=== PATIENT | male | born 1950 | race Caucasian/White ===

== ENCOUNTER 2020-04-10 00:55 | Emergency (ER) | payer MEDICARE ==
[~2020-04-10] VITALS: Ht 200.7 cm; Wt 93.0 kg
[~2020-04-10 00:55] MED LIST: AMIT10TA6 PO; CLON0.1T PO; MIRT45TA PO; SERT20OR PO
[2020-04-10 01:38] LABS: BASOPHILS % (AUTO) 0.8 % (0.0-2.0); EOSINOPHILS % (AUTO) 1.5 % (1.0-6.0); HEMATOCRIT 42.6 % (41-53); HEMOGLOBIN 14.2 g/dL (13.5-17.5); LYMPHOCYTES # (AUTO) 1.6 K/uL (1.0-4.8); LYMPHOCYTES % (AUTO) 30.1 % (22.0-44.0); MEAN CORPUSCULAR HEMOGLOBIN 29.9 pg (26.0-34.0); MEAN CORPUSCULAR HGB CONC 33.4 G/dL (31.0-37.0); MEAN CORPUSCULAR VOLUME 90 fL (80-100); MONOCYTES # (AUTO) 0.5 K/uL (0.1-1.0); MONOCYTES % (AUTO) 9.9 % (2.0-9.0); NEUTROPHILS % (AUTO) 57.7 % (40.0-70.0); PLATELET COUNT (AUTO) 165 K/uL (150-450); RED BLOOD CELL COUNT(AUTO) 4.76 MIL/uL (4.50-5.90); RED CELL DISTRIBUTION WIDTH 14.3 % (11.5-14.5)
[2020-04-10 01:48] LABS: ANION GAP 9 mmol/L (8-16); CARBON DIOXIDE 24 mmol/L (22-29); CHLORIDE 108 mmol/L (98-107); CREATININE 0.89 mg/dL (0.60-1.30); GLOMERULAR FILTR. RATE CALC > 60 mL/min (>60); GLUCOSE,RANDOM 99 mg/dL (70-110); POTASSIUM 3.3 mmol/L (3.5-5.1); SODIUM SERUM 141 mmol/L (136-145); UREA NITROGEN, BLOOD 24 mg/dL (7-18)
[2020-04-10 01:49] LABS: SALICYLATE 2.8 mg/dL (2.8-20.0)
[2020-04-10 01:55] LABS: B-TYPE NATRIURETIC PEPTIDE 7 pg/mL (0-100)
[2020-04-10] MEDS ORDERED: POTASSIUM CHLORIDE 20 MEQ ER TABLET PO ONE (02:00)
[2020-04-10 02:12] LABS: ACETAMINOPHEN 3 mcg/mL (10-30); ALANINE AMINOTRANSFERASE 51 U/L (12-78); ALBUMIN 3.7 g/dL (3.4-5.0); ALKALINE PHOSPHATASE 80 U/L (46-116); ASPARTATE AMINOTRANSFERASE 29 U/L (15-37); BILIRUBIN,TOTAL 0.5 mg/dL (0.1-1.0); CREATINE KINASE, TOTAL ONLY 93 U/L (39-308)
[2020-04-10 02:15] VITALS: BP 149/90
== END 2020-04-10 02:30 | disposition home or self-care (01) ==
LOC: EMS 00:55
DX: R45.851 Suicidal ideations (principal); F32.9 Major depressive disorder, single episode, unspecified; F12.90 Cannabis use, unspecified, uncomplicated; F17.210 Nicotine dependence, cigarettes, uncomplicated; Z79.899 Other long term (current) drug therapy
CPT/HCPCS: 36415; 80053; 82550; 83735; 83880; 84484; 85025; 93005; 99284; G0480; G0481

== ENCOUNTER 2022-03-07 12:46 | Emergency (ER) | payer MEDICARE, OTHER ==
[~2022-03-07] VITALS: Ht 193 cm; Wt 110.0 kg
[~2022-03-07 12:46] MED LIST changes: +ACET-784 PO; -AMIT10TA6 PO; +CHLO240L TP; -CLON0.1T PO; +DOCU-385 PO; +ENOX40SY14 SQ; +HYDR-4723 PO; +MAGN-169 PO; -MIRT45TA PO; +MULT-248 PO; +MUPI15CR12 TP; +PANT-31 PO; -SERT20OR PO; +TAMS-13 PO
[2022-03-07] MEDS ORDERED: ACETAMINOPHEN 500 MG TABLET PO ONE (13:15)
[2022-03-07 14:09] LABS: BASOPHILS % (AUTO) 0.6 % (0.0-2.0); EOSINOPHILS % (AUTO) 1.2 % (1.0-6.0); HEMATOCRIT 43.1 % (41-53); HEMOGLOBIN 14.3 g/dL (13.5-17.5); LYMPHOCYTES # (AUTO) 1.4 K/uL (1.0-4.8); LYMPHOCYTES % (AUTO) 23.8 % (22.0-44.0); MEAN CORPUSCULAR HEMOGLOBIN 29.8 pg (26.0-34.0); MEAN CORPUSCULAR HGB CONC 33.1 G/dL (31.0-37.0); MEAN CORPUSCULAR VOLUME 90 fL (80-100); MONOCYTES # (AUTO) 0.6 K/uL (0.1-1.0); MONOCYTES % (AUTO) 9.9 % (2.0-9.0); NEUTROPHILS # (AUTO) 3.9 K/uL (1.8-7.7); NEUTROPHILS % (AUTO) 64.5 % (40.0-70.0); PLATELET COUNT (AUTO) 139 K/uL (150-450); RED BLOOD CELL COUNT(AUTO) 4.79 MIL/uL (4.50-5.90); RED CELL DISTRIBUTION WIDTH 14.7 % (11.5-14.5)
[2022-03-07 14:19] LABS: ANION GAP 6 mmol/L (8-16); CALCIUM, TOTAL 9.3 mg/dL (8.8-10.5); CARBON DIOXIDE 30 mmol/L (22-29); CHLORIDE 102 mmol/L (98-107); CREATININE 0.88 mg/dL (0.60-1.30); GLUCOSE,RANDOM 110 mg/dL (70-110); POTASSIUM 3.5 mmol/L (3.5-5.1); SODIUM SERUM 138 mmol/L (136-145); UREA NITROGEN, BLOOD 18 mg/dL (7-18)
[2022-03-07 14:25] LABS: ALANINE AMINOTRANSFERASE 75 U/L (12-78); ALBUMIN 3.7 g/dL (3.4-5.0); ALKALINE PHOSPHATASE 82 U/L (46-116); ASPARTATE AMINOTRANSFERASE 40 U/L (15-37); B-TYPE NATRIURETIC PEPTIDE 9 pg/mL (0-100); BILIRUBIN,TOTAL 0.6 mg/dL (0.1-1.0); GLOMERULAR FILTR. RATE CALC > 60 mL/min (>60); TOTAL PROTEIN, SERUM 7.2 g/dL (6.4-8.2)
[2022-03-07 14:27] LABS: PROTHROMBIN TIME 11.1 SEC (9.4-11.6)
[2022-03-07 15:09] LABS: APPEARANCE,URINE CLEAR (CLEAR); BILIRUBIN,URINE NEGATIVE (NEGATIVE); GLUCOSE, URINE (UA) NEGATIVE (NEGATIVE); KETONES,URINE NEGATIVE (NEGATIVE); LEUKOCYTE ESTERASE ,URINE SMALL (NEGATIVE); OCCULT BLOOD,URINE NEGATIVE (NEGATIVE); PH,URINE 5.5 (5.0-8.0); PROTEIN,URINE NEGATIVE (NEGATIVE); SPECIFIC GRAVITIY, URINE 1.027 (1.003-1.030); UROBILINOGEN,URINE <=1.0 mg/dL (<=1.0)
[2022-03-07 15:24] LABS: NITRATE,URINE POSITIVE (NEGATIVE)
[2022-03-07 15:25] LABS: BACTERIA,URINE Many /HPF (None Seen); RBC,URINE None Seen /HPF (0-2)
[2022-03-07] MEDS ORDERED: CEPHALEXIN MONOHYDRATE 500 MG CAPSULE PO ONE (15:45)
[2022-03-07 17:34] VITALS: BP 171/100
== END 2022-03-07 23:04 | disposition home or self-care (01) ==
LOC: EMS 12:50
DX: M25.551 Pain in right hip (principal); N39.0 Urinary tract infection, site not specified; F03.90 Unspecified dementia, unspecified severity, without behavioral disturbance, psychotic disturbance, mood disturbance, and anxiety; I10 Essential (primary) hypertension; Z90.49 Acquired absence of other specified parts of digestive tract; Z98.890 Other specified postprocedural states
CPT/HCPCS: 70450; 71045; 73502; 80053; 81001; 83880; 84484; 85025; 85610; 85730; 87086; 87186; 93005; 99285; 36415-L1; 36415-TC

== ENCOUNTER 2024-01-13 12:44 | Emergency (ER) | payer MEDICARE, OTHER ==
[~2024-01-13] VITALS: Ht 190.5 cm; Wt 110.3 kg
[~2024-01-13 12:44] MED LIST changes: +HYDR-4062 PO; -HYDR-4723 PO; -TAMS-13 PO; +TAMS0.4C94 PO
[2024-01-13 13:15] VITALS: BP 131/86; PULSE 96; RESP 20; TEMP 98.3
[2024-01-13 14:12] LABS: HEMOGLOBIN 12.3 g/dL (13.5-17.5); RED BLOOD CELL COUNT(AUTO) 4.46 MIL/uL (4.50-5.90)
[2024-01-13 14:13] LABS: BASOPHILS % (AUTO) 0.6 % (0.0-2.0); EOSINOPHILS % (AUTO) 1.8 % (1.0-6.0); LYMPHOCYTES # (AUTO) 1.8 K/uL (1.0-4.8); LYMPHOCYTES % (AUTO) 25.6 % (22.0-44.0); MEAN CORPUSCULAR HEMOGLOBIN 27.6 pg (26.0-34.0); MEAN CORPUSCULAR HGB CONC 31.6 G/dL (31.0-37.0); MEAN CORPUSCULAR VOLUME 87 fL (80-100); MONOCYTES # (AUTO) 0.6 K/uL (0.1-1.0); MONOCYTES % (AUTO) 8.8 % (2.0-9.0); NEUTROPHILS # (AUTO) 4.4 K/uL (1.8-7.7); NEUTROPHILS % (AUTO) 63.2 % (40.0-70.0); PLATELET COUNT (AUTO) 199 K/uL (150-450); RED CELL DISTRIBUTION WIDTH 15.6 % (11.5-14.5)
[2024-01-13 14:23] LABS: ANION GAP 13 mmol/L (8-16); CALCIUM, TOTAL 9.3 mg/dL (8.8-10.5); CARBON DIOXIDE 22 mmol/L (22-29); CHLORIDE 106 mmol/L (98-107); CREATININE 1.15 mg/dL (0.60-1.30); GLOMERULAR FILTR. RATE CALC > 60 mL/min (>60); GLUCOSE,RANDOM 115 mg/dL (70-110); POTASSIUM 4.4 mmol/L (3.5-5.1); SODIUM SERUM 141 mmol/L (136-145); UREA NITROGEN, BLOOD 29 mg/dL (7-18)
[2024-01-13 14:32] LABS: TROPONIN I-HIGH SENSITIVITY 7 ng/L (<76)
[2024-01-13] MEDS: KETOROLAC TROMETHAMINE 30 MG/ML VIAL IM ONE (15:13)
[2024-01-13] MEDS ORDERED: HYDR-4062 PO (15:46)
== END 2024-01-13 16:58 | disposition home or self-care (01) ==
LOC: EMS 12:49
DX: M54.50 Low back pain, unspecified (principal); I10 Essential (primary) hypertension; Z90.49 Acquired absence of other specified parts of digestive tract; Z98.890 Other specified postprocedural states
CPT/HCPCS: 99285; 80048; 84484; 85025; 36415; 72170; 93005; 96372; J1885

== ENCOUNTER 2024-01-13 20:59 | Emergency (ER) | payer MEDICARE, OTHER ==
[~2024-01-13] VITALS: Ht 198.1 cm; Wt 111.4 kg
[2024-01-13 21:20] VITALS: TEMP 98
[2024-01-13] MEDS: LORazepam 2 MG/ML VIAL IM ONE (23:01)
[2024-01-14 01:12] VITALS: BP 129/71; PULSE 84; RESP 18
== END 2024-01-14 01:43 | disposition home or self-care (01) ==
LOC: EMS 20:59
DX: R41.0 Disorientation, unspecified (principal); I10 Essential (primary) hypertension; Z90.49 Acquired absence of other specified parts of digestive tract; Z98.890 Other specified postprocedural states; W19.XXXA Unspecified fall, initial encounter; Y93.89 Activity, other specified; Y92.89 Other specified places as the place of occurrence of the external cause; Y99.8 Other external cause status
CPT/HCPCS: 99283; 96372; J2060

== ENCOUNTER 2024-01-20 10:32 | Inpatient (IN) | payer MEDICARE, MEDICAID ==
[~2024-01-20] VITALS: Ht 182.9 cm; Wt 108.1 kg
[2024-01-20 11:11] LABS: BASOPHILS % (AUTO) 0.6 % (0.0-2.0); EOSINOPHILS % (AUTO) 1.1 % (1.0-6.0); HEMATOCRIT 42.7 % (41-53); HEMOGLOBIN 13.8 g/dL (13.5-17.5); LYMPHOCYTES # (AUTO) 1.2 K/uL (1.0-4.8); LYMPHOCYTES % (AUTO) 16.8 % (22.0-44.0); MEAN CORPUSCULAR HEMOGLOBIN 28.4 pg (26.0-34.0); MEAN CORPUSCULAR HGB CONC 32.3 G/dL (31.0-37.0); MEAN CORPUSCULAR VOLUME 88 fL (80-100); MONOCYTES # (AUTO) 0.6 K/uL (0.1-1.0); MONOCYTES % (AUTO) 7.6 % (2.0-9.0); NEUTROPHILS # (AUTO) 5.4 K/uL (1.8-7.7); NEUTROPHILS % (AUTO) 73.9 % (40.0-70.0); PLATELET COUNT (AUTO) 274 K/uL (150-450); RED BLOOD CELL COUNT(AUTO) 4.86 MIL/uL (4.50-5.90); RED CELL DISTRIBUTION WIDTH 16.1 % (11.5-14.5); WHITE BLOOD COUNT (AUTO) 7.3 K/uL (4.5-11.0)
[2024-01-20 11:19] LABS: TROPONIN I-HIGH SENSITIVITY 6 ng/L (<76)
[2024-01-20 11:26] LABS: CALCIUM, TOTAL 9.8 mg/dL (8.8-10.5); CREATININE 1.19 mg/dL (0.60-1.30); POTASSIUM 4.2 mmol/L (3.5-5.1)
[2024-01-20 14:10] LABS: COVID AG,FIA SOURCE NASAL SWAB
[2024-01-20 14:29] LABS: SARS-COV2 (COVID) ANTIGEN,FIA Negative (Negative)
[2024-01-20 19:05] LABS: ALCOHOL, URINE DRUG SCREEN NEGATIVE (NEGATIVE); AMPHET/METH SCREEN,URINE NEGATIVE (NEGATIVE); BARBITURATE SCREEN, URINE NEGATIVE (NEGATIVE); BENZODIAZEPINES SCREEN,URINE NEGATIVE (NEGATIVE); CANNABINOID SCREEN,URINE NEGATIVE (NEGATIVE); COCAINE SCREEN,URINE NEGATIVE (NEGATIVE); METHADONE SCREEN, URINE NEGATIVE (NEGATIVE); OPIATE SCREEN,URINE NEGATIVE (NEGATIVE); PHENCYCLIDINE SCREEN,URINE NEGATIVE (NEGATIVE)
[2024-01-20] MEDS: OLANZapine 5 MG TABLET PO ONE (22:29)
[2024-01-20] MEDS: ACETAMINOPHEN 325 MG TABLET PO ONE (22:29)
[2024-01-20 23:28] VITALS: BP 138/67; PULSE 88; RESP 18; TEMP 97.5; O2SAT 100
[2024-01-21] VITALS (7 sets, daily range): BP systolic 132–149; BP diastolic 78–86; PULSE 83–101; RESP 18–19; TEMP 97.4–97.8; O2SAT 100
[2024-01-21] MEDS: ZOLPIDEM TARTRATE 10 MG TABLET PO PRN (00:29)
[2024-01-21] MEDS ORDERED: CloNIDine HCL 0.1 MG TABLET PO PRN (06:30)
[2024-01-21] MEDS ORDERED: MAG HYDROX/ALUMINUM HYD/SIMETH ES 30 ML SUSPENSION UDCUP PO PRN ×2 (06:30→11:45)
[2024-01-21] MEDS ORDERED: OMEPRAZOLE 20 MG CAPSULE PO PRN (06:30)
[2024-01-21] MEDS ORDERED: BENZOCAINE/MENTHOL LOZENGE PO PRN (06:30)
[2024-01-21] MEDS ORDERED: ONDANSETRON 4 MG TABLET PO PRN (06:30)
[2024-01-21] MEDS ORDERED: BACITRACIN 28 GM OINTMENT TP PRN (06:30)
[2024-01-21] MEDS ORDERED: PETROLATUM,WHITE 28 GM JELLY TP PRN (06:30)
[2024-01-21] MEDS ORDERED: ALBUTEROL SULFATE HFA 90 MCG/PUFF 8 GM INHALER IH PRN (06:30)
[2024-01-21] MEDS ORDERED: ACETAMINOPHEN 325 MG TABLET PO PRN (06:30)
[2024-01-21] MEDS ORDERED: DOCUSATE SODIUM 100 MG CAPSULE PO PRN (06:30)
[2024-01-21] MEDS ORDERED: MAGNESIUM HYDROXIDE SUSPENSION 30 ML UDCUP PO PRN ×2 (06:30→11:45)
[2024-01-21] MEDS ORDERED: LOPERAMIDE HCL 2 MG CAPSULE PO PRN ×2 (06:30→11:45)
[2024-01-21] MEDS: IBUPROFEN 600 MG TABLET PO PRN (06:33)
[2024-01-21] MEDS: TAMSULOSIN HCL 0.4 MG CAPSULE PO SCH (09:41)
[2024-01-21] MEDS: LORazepam 2 MG TABLET PO PRN (09:41)
[2024-01-21] MEDS: LISINOPRIL 5 MG TABLET PO SCH (09:41)
[2024-01-21] MEDS: HALOPERIDOL 5 MG TABLET PO PRN (09:41)
[2024-01-21] MEDS ORDERED: TUBERCULIN, PURIFIED PROTEIN DERIVATIVE 5 TU/0.1 ML SYRINGE ID ONE (11:45)
[2024-01-21] MEDS ORDERED: GuaiFENesin/D-METHORPHAN [SUGAR-FREE] 200-20MG/10 ML SYRUP UDCUP PO PRN (11:45)
[2024-01-21] MEDS ORDERED: PROMETHAZINE HCL 25 MG TABLET PO PRN (11:45)
[2024-01-21] MEDS: HydrOXYzine PAMOATE 50 MG CAPSULE PO PRN (13:48)
[2024-01-21] MEDS: THIAMINE 100 MG TABLET PO SCH (16:05)
[2024-01-21] MEDS: ACETAMINOPHEN 325 MG TABLET PO PRN (16:05)
[2024-01-21] MEDS: DULoxetine HCL 20 MG CAPSULE PO SCH (21:01)
[2024-01-22] MEDS: MULTIVITAMINS WITH MINERALS, THERAPEUTIC TABLET PO SCH (08:07)
[2024-01-22] MEDS: FOLIC ACID 1 MG TABLET PO SCH (08:08)
[2024-01-22 08:09] VITALS: BP 132/80; PULSE 80; RESP 19; TEMP 97.6
[2024-01-22 08:34] VITALS: BP 122/67; PULSE 87; RESP 20; TEMP 97.7; O2SAT 96
[2024-01-22 08:55] LABS: HEMOGLOBIN A1C 6.3 % (3.8-5.6)
[2024-01-22 08:58] LABS: CHOL/HDL RATIO 3.6 (4.2-7.3)
[2024-01-22 09:09] VITALS: BP 124/81; PULSE 80; RESP 18; TEMP 98.7
[2024-01-22 09:19] LABS: FREE T4 (FREE THYROXINE) 0.82 ng/dL (0.76-1.46); THYROID STIMULATING HORMONE 0.69 uIU/mL (0.36-3.74)
[2024-01-22] MEDS ORDERED: GADOTERATE MEGLUMINE 10 MMOL/20 ML VIAL IVP ONE (11:59)
[2024-01-22] MEDS: PREGABALIN 25 MG CAPSULE PO SCH (13:09)
[2024-01-22 20:24] VITALS: BP 106/60; PULSE 95; RESP 18; TEMP 97.8; O2SAT 100
[2024-01-23 08:47] VITALS: BP 135/78; PULSE 81; RESP 18; TEMP 94.5; TEMP 97.5; O2SAT 98
[2024-01-23 20:08] VITALS: BP 123/80; PULSE 85; RESP 18; TEMP 97; O2SAT 98
[2024-01-24 08:48] VITALS: BP 171/98; PULSE 62; RESP 18; TEMP 97.5; O2SAT 95
[2024-01-24 11:45] VITALS: RESP 18
[2024-01-24 20:49] VITALS: BP 115/73; PULSE 77; RESP 18; TEMP 98.2; O2SAT 100
[2024-01-25 09:31] VITALS: BP 118/77; PULSE 93; RESP 17; TEMP 97.9; O2SAT 95
[2024-01-25 21:44] VITALS: BP 121/76; PULSE 85; RESP 18; TEMP 97.4
[2024-01-26 05:42] VITALS: BP 132/86; PULSE 78; RESP 20; TEMP 97.6
[2024-01-26 09:52] VITALS: BP 115/63; PULSE 73; RESP 18; TEMP 97.2; O2SAT 97
[2024-01-26 18:28] VITALS: BP 122/76; PULSE 74; RESP 18; TEMP 97.5
[2024-01-26 21:00] VITALS: BP 103/72; PULSE 82; RESP 18; TEMP 97.7; O2SAT 98
[2024-01-27 05:47] VITALS: BP 115/75; PULSE 79; RESP 18; TEMP 97.6
[2024-01-27 06:47] VITALS: RESP 18
[2024-01-27 08:33] VITALS: BP 137/93; PULSE 72; RESP 19; TEMP 97.1; O2SAT 98
[2024-01-27 21:49] VITALS: BP 112/69; PULSE 63; RESP 18; TEMP 97.6; O2SAT 99
[2024-01-28 05:12] VITALS: BP 117/71; PULSE 74; RESP 18; TEMP 97.4; O2SAT 97
[2024-01-28 06:12] VITALS: RESP 18
[2024-01-28 09:59] VITALS: BP 120/66; PULSE 80; RESP 17; TEMP 97; O2SAT 97
[2024-01-28 20:56] VITALS: BP 123/64; PULSE 81; RESP 18; TEMP 97.6; O2SAT 98
[2024-01-29 09:38] VITALS: BP 142/87; PULSE 97; RESP 19; TEMP 97.5; O2SAT 100
[2024-01-29] MEDS: LORazepam 0.5 MG TABLET PO PRN (21:31)
[2024-01-29 21:47] VITALS: BP 104/64; PULSE 85; RESP 19; TEMP 96.7; O2SAT 100
[2024-01-30 09:08] VITALS: BP 137/75; PULSE 95; RESP 18; TEMP 96.9; O2SAT 100
[2024-01-30 09:40] VITALS: BP 137/75; PULSE 95; RESP 17; TEMP 96.9; O2SAT 95
[2024-01-30] MEDS ORDERED: DULO20CA71 PO (12:32)
[2024-01-30] MEDS ORDERED: LISI-892 PO (12:33)
[2024-01-30] MEDS ORDERED: FOLI-130 PO (12:33)
[2024-01-30] MEDS ORDERED: MULT-1303 PO (12:34)
[2024-01-30] MEDS ORDERED: THIA100T80 PO (12:35)
[2024-01-30] MEDS ORDERED: PREG25 PO (12:35)
== END 2024-01-30 15:05 | DRG 885 ==
LOC: EMS 10:32 → EDBEDREQTM 14:08 → 3EX 18:33
PROVIDERS: ADMIT Psychiatry & Neurology Psychiatry; ATTEND Psychiatry & Neurology Psychiatry
PROC: GZHZZZZ Group Psychotherapy (ICD-10-PCS; principal; 2024-01-21)
PROC: GZ51ZZZ Individual Psychotherapy, Behavioral (ICD-10-PCS; 2024-01-21)
PROC: GZ58ZZZ Individual Psychotherapy, Cognitive-Behavioral (ICD-10-PCS; 2024-01-21)
DX: F33.2 Major depressive disorder, recurrent severe without psychotic features (principal); B19.20 Unspecified viral hepatitis C without hepatic coma; F03.918 Unspecified dementia, unspecified severity, with other behavioral disturbance; Z59.00 Homelessness unspecified; F17.200 Nicotine dependence, unspecified, uncomplicated; G47.00 Insomnia, unspecified; N40.0 Benign prostatic hyperplasia without lower urinary tract symptoms; I10 Essential (primary) hypertension; Z20.822 Contact with and (suspected) exposure to COVID-19; Z60.8 Other problems related to social environment; F10.20 Alcohol dependence, uncomplicated; G89.29 Other chronic pain; Y90.9 Presence of alcohol in blood, level not specified; M19.09 Primary osteoarthritis, other specified site; K21.9 Gastro-esophageal reflux disease without esophagitis; J44.9 Chronic obstructive pulmonary disease, unspecified; Z53.20 Procedure and treatment not carried out because of patient's decision for unspecified reasons; Z55.9 Problems related to education and literacy, unspecified; Z63.9 Problem related to primary support group, unspecified; Z65.3 Problems related to other legal circumstances; Z91.81 History of falling
CPT/HCPCS: 70553; 72148; 80048; 80061; 80307; 83036; 84439; 84443; 84484; 85025; 86592; 93005; 97161; 97165; 97530; 97535; 99285; G0378

== ENCOUNTER 2024-03-27 10:44 | Inpatient (IN) | payer MEDICARE, OTHER ==
[~2024-03-27] VITALS: Ht 200.7 cm; Wt 105.0 kg
[~2024-03-27 10:44] MED LIST changes: -ACET-784 PO; -CHLO240L TP; -DOCU-385 PO; +DULO20CA71 PO; -ENOX40SY14 SQ; +FOLI-130 PO; -HYDR-4062 PO; +LISI-892 PO; -MAGN-169 PO; +MULT-1303 PO; -MULT-248 PO; -MUPI15CR12 TP; -PANT-31 PO; +PREG25 PO; +THIA100T80 PO
[2024-03-27 11:15] LABS: BASOPHILS % (AUTO) 0.4 % (0.0-2.0); EOSINOPHILS % (AUTO) 0.3 % (1.0-6.0); HEMATOCRIT 42.8 % (41-53); HEMOGLOBIN 13.8 g/dL (13.5-17.5); LYMPHOCYTES % (AUTO) 9.9 % (22.0-44.0); MEAN CORPUSCULAR HEMOGLOBIN 28.2 pg (26.0-34.0); MEAN CORPUSCULAR HGB CONC 32.3 G/dL (31.0-37.0); MEAN CORPUSCULAR VOLUME 87 fL (80-100); MONOCYTES # (AUTO) 0.4 K/uL (0.1-1.0); MONOCYTES % (AUTO) 3.8 % (2.0-9.0); NEUTROPHILS # (AUTO) 8.4 K/uL (1.8-7.7); PLATELET COUNT (AUTO) 167 K/uL (150-450); WHITE BLOOD COUNT (AUTO) 9.8 K/uL (4.5-11.0)
[2024-03-27 11:20] LABS: NEUTROPHILS % (AUTO) 85.6 % (40.0-70.0)
[2024-03-27 11:23] LABS: COVID AG,FIA SOURCE NASAL SWAB
[2024-03-27 11:41] LABS: RBC MORPHOLOGY COMMENT NORMAL RBC MORPH
[2024-03-27 11:46] LABS: SARS-COV2 (COVID) ANTIGEN,FIA Negative (Negative)
[2024-03-27 11:49] LABS: CALCIUM, TOTAL 8.9 mg/dL (8.8-10.5); CREATININE 1.19 mg/dL (0.60-1.30); POTASSIUM 3.7 mmol/L (3.5-5.1)
[2024-03-27 11:52] LABS: TROPONIN I-HIGH SENSITIVITY 17 ng/L (<76)
[2024-03-27 12:23] LABS: ALBUMIN 3.3 g/dL (3.4-5.0); BILIRUBIN,TOTAL 2.1 mg/dL (0.1-1.0); TOTAL PROTEIN, SERUM 7.2 g/dL (6.4-8.2)
[2024-03-27 13:03] LABS: APPEARANCE,URINE CLEAR (CLEAR); BILIRUBIN,URINE NEGATIVE (NEGATIVE); COLOR,URINE YELLOW (YELLOW); GLUCOSE, URINE (UA) NEGATIVE (NEGATIVE); KETONES,URINE TRACE mg/dL (NEGATIVE); LEUKOCYTE ESTERASE ,URINE MODERATE (NEGATIVE); NITRATE,URINE NEGATIVE (NEGATIVE); OCCULT BLOOD,URINE NEGATIVE (NEGATIVE); PROTEIN,URINE 30-70 mg/dL (NEGATIVE); SPECIFIC GRAVITIY, URINE 1.039 (1.003-1.030)
[2024-03-27] MEDS: SODIUM CHLORIDE 0.9% 1,000 ML IV ONE ×2 (13:13→18:01)
[2024-03-27] MEDS ORDERED: ACETAMINOPHEN 325 MG TABLET PO PRN (13:15)
[2024-03-27] MEDS ORDERED: BISACODYL 10 MG RECTAL RECTAL SUPPOSITORY PR PRN (13:15)
[2024-03-27] MEDS ORDERED: ONDANSETRON HCL 4 MG/2 ML VIAL IVP PRN (13:15)
[2024-03-27] MEDS ORDERED: SODIUM CHLORIDE 0.9% 1,000 ML IV ONE (13:15)
[2024-03-27 13:44] LABS: BACTERIA,URINE Moderate /HPF (None Seen); RBC,URINE None Seen /HPF (0-2); SQUAMOUS EPITHELIAL CELL,UR Few /LPF (None Seen)
[2024-03-27 18:52] VITALS: BP 144/77; PULSE 83; RESP 16; TEMP 98.6; O2SAT 90
[2024-03-27 20:18] VITALS: BP 143/82; PULSE 76; RESP 18; TEMP 97.8; O2SAT 96
[2024-03-28] MEDS ORDERED: 0.9% SODIUM CHLORIDE 5 ML NEB SOLUTION NEB ONE (01:53)
[2024-03-28] MEDS: ALBUTEROL SULFATE 2.5 MG/0.5 ML NEB SOLUTION NEB PRN (01:58)
[2024-03-28 02:01] VITALS: PULSE 90; RESP 18; O2SAT 95
[2024-03-28 02:03] VITALS: PULSE 90; RESP 18; O2SAT 95
[2024-03-28 04:40] VITALS: BP 139/86; PULSE 95; RESP 20; TEMP 98.4; O2SAT 94
[2024-03-28 09:10] VITALS: BP 141/74; PULSE 99; RESP 19; TEMP 97.7; O2SAT 93
[2024-03-28] MEDS: PANTOPRAZOLE SODIUM 40 MG/VIAL IVP SCH (10:14)
[2024-03-28] MEDS ORDERED: ALBUTEROL SULFATE 2.5 MG/0.5 ML NEB SOLUTION NEB PRN (10:15)
[2024-03-28] MEDS ORDERED: AMLODIPINE PO (10:19)
[2024-03-28] MEDS ORDERED: LORA-1370 PO (10:19)
[2024-03-28] MEDS ORDERED: VIT B12 PO (10:21)
[2024-03-28] MEDS ORDERED: FLUTICASONE (10:25)
[2024-03-28] MEDS ORDERED: SODIUM CHLORIDE 0.9% 100 ML ONE (11:44)
[2024-03-28] MEDS ORDERED: 0.9% SODIUM CHLORIDE 10 ML SYRINGE IVP ONE (11:44)
[2024-03-28] MEDS ORDERED: IOHEXOL 350 MG/ML 100 ML VIAL ONE (11:44)
[2024-03-28] MEDS: LEVOFLOXACIN 500 MG TABLET PO SCH (12:10)
[2024-03-28] MEDS: LACTULOSE 20 GM/30 ML SOLUTION UDCUP PO ONE (12:10)
[2024-03-28] MEDS: TraMADol HCL 50 MG TABLET PO PRN ×2 (12:14→20:37)
[2024-03-28 20:00] VITALS: BP 151/82; PULSE 82; RESP 20; TEMP 99; O2SAT 94
[2024-03-28] MEDS: THIAMINE 100 MG TABLET PO SCH (20:15)
[2024-03-28] MEDS: BENZONATATE 100 MG CAPSULE PO PRN (20:15)
[2024-03-28] MEDS: ZOLPIDEM TARTRATE 5 MG TABLET PO ONE (21:54)
[2024-03-29 02:57] VITALS: BP 146/88; PULSE 90; RESP 20; TEMP 99.2; O2SAT 92
[2024-03-29 07:10] LABS: BASOPHILS % (AUTO) 0.8 % (0.0-2.0); EOSINOPHILS % (AUTO) 1.8 % (1.0-6.0); HEMATOCRIT 40.3 % (41-53); HEMOGLOBIN 13.1 g/dL (13.5-17.5); LYMPHOCYTES % (AUTO) 11.4 % (22.0-44.0); MEAN CORPUSCULAR HEMOGLOBIN 28.2 pg (26.0-34.0); MEAN CORPUSCULAR HGB CONC 32.6 G/dL (31.0-37.0); MEAN CORPUSCULAR VOLUME 87 fL (80-100); MONOCYTES # (AUTO) 0.8 K/uL (0.1-1.0); NEUTROPHILS # (AUTO) 6.5 K/uL (1.8-7.7); PLATELET COUNT (AUTO) 174 K/uL (150-450); RED BLOOD CELL COUNT(AUTO) 4.65 MIL/uL (4.50-5.90); RED CELL DISTRIBUTION WIDTH 17.2 % (11.5-14.5); WHITE BLOOD COUNT (AUTO) 8.5 K/uL (4.5-11.0)
[2024-03-29 07:43] LABS: ALANINE AMINOTRANSFERASE 1080 U/L (12-78); ALBUMIN 2.6 g/dL (3.4-5.0); ALKALINE PHOSPHATASE 148 U/L (46-116); ASPARTATE AMINOTRANSFERASE 855 U/L (15-37); CALCIUM, TOTAL 8.7 mg/dL (8.8-10.5); CARBON DIOXIDE 24 mmol/L (22-29); CREATININE 0.89 mg/dL (0.60-1.30); GLOMERULAR FILTR. RATE CALC > 60 mL/min (>60); GLUCOSE,RANDOM 109 mg/dL (70-110); TOTAL PROTEIN, SERUM 6.7 g/dL (6.4-8.2); UREA NITROGEN, BLOOD 16 mg/dL (7-18)
[2024-03-29 08:11] LABS: ANION GAP 11 mmol/L (8-16); SODIUM SERUM 140 mmol/L (136-145)
[2024-03-29 09:04] LABS: CREATINE KINASE, TOTAL ONLY 274 U/L (39-308)
[2024-03-29 09:18] VITALS: BP 156/82; PULSE 87; RESP 18; TEMP 97.7; O2SAT 93
[2024-03-29] MEDS: FOLIC ACID 1 MG TABLET PO SCH (09:24)
[2024-03-29] MEDS: MULTIVITAMINS WITH MINERALS, THERAPEUTIC TABLET PO SCH (09:24)
[2024-03-29] MEDS: TAMSULOSIN HCL 0.4 MG CAPSULE PO SCH (09:25)
[2024-03-29 11:07] LABS: CHLORIDE 105 mmol/L (98-107)
[2024-03-29] MEDS ORDERED: AMLO2.5T96 PO (15:03)
[2024-03-29] MEDS ORDERED: CHOL25TA4 PO (15:03)
[2024-03-29] MEDS ORDERED: LISI40TA9 PO (15:03)
[2024-03-29] MEDS ORDERED: FLUT16H NASAL (15:03)
[2024-03-29] MEDS ORDERED: ZOLP-162 PO (15:03)
[2024-03-29] MEDS ORDERED: CYAN-53 PO (15:03)
[2024-03-29] MEDS: SODIUM CHLORIDE 0.9% 1,000 ML IV ONE (16:03)
[2024-03-29 17:18] VITALS: BP 129/76; PULSE 91; RESP 18; TEMP 97.9; O2SAT 91
[2024-03-29 19:02] VITALS: O2SAT 94
[2024-03-29 20:00] VITALS: BP 120/92; PULSE 76; RESP 19; TEMP 99; O2SAT 92
[2024-03-29] MEDS: ZOLPIDEM TARTRATE 5 MG TABLET PO PRN (21:40)
[2024-03-30 05:32] VITALS: BP 138/78; PULSE 78; RESP 18; TEMP 98.1; O2SAT 92
[2024-03-30 06:52] LABS: BASOPHILS % (AUTO) 0.5 % (0.0-2.0); EOSINOPHILS % (AUTO) 2.6 % (1.0-6.0); HEMATOCRIT 38.2 % (41-53); HEMOGLOBIN 12.4 g/dL (13.5-17.5); LYMPHOCYTES % (AUTO) 16.2 % (22.0-44.0); MEAN CORPUSCULAR HEMOGLOBIN 28.1 pg (26.0-34.0); MEAN CORPUSCULAR HGB CONC 32.3 G/dL (31.0-37.0); MEAN CORPUSCULAR VOLUME 87 fL (80-100); MONOCYTES # (AUTO) 0.8 K/uL (0.1-1.0); MONOCYTES % (AUTO) 13.2 % (2.0-9.0); NEUTROPHILS # (AUTO) 4.2 K/uL (1.8-7.7); NEUTROPHILS % (AUTO) 67.5 % (40.0-70.0); PLATELET COUNT (AUTO) 160 K/uL (150-450); RED CELL DISTRIBUTION WIDTH 16.9 % (11.5-14.5); WHITE BLOOD COUNT (AUTO) 6.3 K/uL (4.5-11.0)
[2024-03-30 06:59] LABS: ALANINE AMINOTRANSFERASE 817 U/L (12-78); ALBUMIN 2.6 g/dL (3.4-5.0); ALKALINE PHOSPHATASE 154 U/L (46-116); ANION GAP 6 mmol/L (8-16); ASPARTATE AMINOTRANSFERASE 417 U/L (15-37); BILIRUBIN,TOTAL 1.7 mg/dL (0.1-1.0); CALCIUM, TOTAL 8.6 mg/dL (8.8-10.5); CARBON DIOXIDE 28 mmol/L (22-29); CHLORIDE 107 mmol/L (98-107); CREATININE 0.75 mg/dL (0.60-1.30); GLOMERULAR FILTR. RATE CALC > 60 mL/min (>60); GLUCOSE,RANDOM 109 mg/dL (70-110); POTASSIUM 3.6 mmol/L (3.5-5.1); SODIUM SERUM 141 mmol/L (136-145); TOTAL PROTEIN, SERUM 6.5 g/dL (6.4-8.2); UREA NITROGEN, BLOOD 14 mg/dL (7-18)
[2024-03-30 08:00] VITALS: BP 165/98; PULSE 76; RESP 18; TEMP 98.2; O2SAT 94
[2024-03-30 09:35] LABS: CREATINE KINASE, TOTAL ONLY 205 U/L (39-308)
[2024-03-30] MEDS: AmLODIPine BESYLATE 5 MG TABLET PO SCH (10:53)
[2024-03-30] MEDS ORDERED: LEVO-72 PO (12:51)
[2024-03-30] MEDS ORDERED: PANT-31 PO (12:52)
[2024-03-30] MEDS ORDERED: BENZ-227 PO (12:53)
[2024-03-30] MEDS ORDERED: BISA10SU11 PR (12:55)
[2024-03-30] MEDS ORDERED: TRAM50TA5 PO (12:56)
[2024-03-30] MEDS ORDERED: LACT10SO10 PO (12:57)
[2024-03-30] MEDS ORDERED: RIFAX550 PO (12:59)
[2024-03-30] MEDS ORDERED: [UNRECOGNIZED DRUG - CODE] IV (13:19)
[2024-03-30 14:00] VITALS: BP 146/91; PULSE 86; RESP 18; TEMP 98.2; O2SAT 94
[2024-03-30 18:00] VITALS: BP 128/76; PULSE 60; RESP 18; O2SAT 92
== END 2024-03-30 18:20 | DRG 435 ==
LOC: EMS 10:46 → EDH 13:09 → 6S 14:49
PROVIDERS: ADMIT Internal Medicine; ATTEND Internal Medicine
DX: C22.0 Liver cell carcinoma (principal); G92.9 Unspecified toxic encephalopathy; J96.01 Acute respiratory failure with hypoxia; M62.82 Rhabdomyolysis; K76.82 Hepatic encephalopathy; F10.10 Alcohol abuse, uncomplicated; Z20.822 Contact with and (suspected) exposure to COVID-19; M47.816 Spondylosis without myelopathy or radiculopathy, lumbar region; F03.90 Unspecified dementia, unspecified severity, without behavioral disturbance, psychotic disturbance, mood disturbance, and anxiety; I10 Essential (primary) hypertension; N40.0 Benign prostatic hyperplasia without lower urinary tract symptoms; R74.8 Abnormal levels of other serum enzymes; E80.6 Other disorders of bilirubin metabolism; B18.2 Chronic viral hepatitis C; R74.01 Elevation of levels of liver transaminase levels; K74.60 Unspecified cirrhosis of liver; N21.0 Calculus in bladder; T50.995A Adverse effect of other drugs, medicaments and biological substances, initial encounter; R16.0 Hepatomegaly, not elsewhere classified; Z79.899 Other long term (current) drug therapy; Z90.49 Acquired absence of other specified parts of digestive tract; Y92.89 Other specified places as the place of occurrence of the external cause
CPT/HCPCS: 70450; 71045; 74178; 74183; 76705; 80053; 81001; 82105; 82140; 82550; 83880; 84484; 85025; 85610; 87077; 87086; 87186; 92610; 93005; 94640; 97163; 99285; C9113; J7030; J7050; 36415-L1; 36415-TC; J7613

== ENCOUNTER 2024-07-01 11:36 | Emergency (ER) | payer MEDICARE, OTHER ==
[~2024-07-01] VITALS: Ht 195.6 cm; Wt 104.5 kg
[~2024-07-01 11:36] MED LIST changes: +AMLO2.5T96 PO; +BENZ-227 PO; +BISA10SU11 PR; +CHOL25TA4 PO; +CYAN-53 PO; +FLUT16H NASAL; +LACT10SO10 PO; +LEVO-72 PO; -LISI-892 PO; +LORA-1370 PO; +PANT-31 PO; -PREG25 PO; +RIFAX550 PO; +TRAM50TA5 PO; +ZOLP-162 PO; +[UNRECOGNIZED DRUG - CODE] IV
[2024-07-01 11:52] VITALS: TEMP 97.6
[2024-07-01 14:38] LABS: BASOPHILS % (AUTO) 0.9 % (0.0-2.0); EOSINOPHILS % (AUTO) 2.2 % (1.0-6.0); HEMATOCRIT 43.1 % (41-53); HEMOGLOBIN 13.9 g/dL (13.5-17.5); LYMPHOCYTES # (AUTO) 1.3 K/uL (1.0-4.8); LYMPHOCYTES % (AUTO) 19.6 % (22.0-44.0); MEAN CORPUSCULAR HEMOGLOBIN 27.6 pg (26.0-34.0); MEAN CORPUSCULAR HGB CONC 32.2 G/dL (31.0-37.0); MEAN CORPUSCULAR VOLUME 86 fL (80-100); MONOCYTES # (AUTO) 0.6 K/uL (0.1-1.0); MONOCYTES % (AUTO) 8.8 % (2.0-9.0); NEUTROPHILS # (AUTO) 4.6 K/uL (1.8-7.7); NEUTROPHILS % (AUTO) 68.5 % (40.0-70.0); PLATELET COUNT (AUTO) 184 K/uL (150-450); RED BLOOD CELL COUNT(AUTO) 5.02 MIL/uL (4.50-5.90); RED CELL DISTRIBUTION WIDTH 17.6 % (11.5-14.5); WHITE BLOOD COUNT (AUTO) 6.7 K/uL (4.5-11.0)
[2024-07-01 14:48] LABS: ANION GAP 9 mmol/L (8-16); CARBON DIOXIDE 25 mmol/L (22-29); CHLORIDE 105 mmol/L (98-107); CREATININE 1.13 mg/dL (0.60-1.30); GLOMERULAR FILTR. RATE CALC > 60 mL/min (>60); GLUCOSE,RANDOM 117 mg/dL (70-110); POTASSIUM 3.7 mmol/L (3.5-5.1); SODIUM SERUM 139 mmol/L (136-145); UREA NITROGEN, BLOOD 10 mg/dL (7-18)
[2024-07-01 15:42] LABS: APPEARANCE,URINE CLEAR (CLEAR); BILIRUBIN,URINE NEGATIVE (NEGATIVE); COLOR,URINE LIGHT YELLOW (YELLOW); GLUCOSE, URINE (UA) NEGATIVE (NEGATIVE); KETONES,URINE NEGATIVE (NEGATIVE); LEUKOCYTE ESTERASE ,URINE NEGATIVE (NEGATIVE); NITRATE,URINE NEGATIVE (NEGATIVE); OCCULT BLOOD,URINE NEGATIVE (NEGATIVE); PROTEIN,URINE NEGATIVE (NEGATIVE); SPECIFIC GRAVITIY, URINE 1.006 (1.003-1.030); UROBILINOGEN,URINE <=1.0 mg/dL (<=1.0)
[2024-07-01 16:20] VITALS: BP 133/62; PULSE 80; RESP 18; O2SAT 98
[2024-07-01] MEDS: SODIUM CHLORIDE 0.9% 1,000 ML IV ONE (17:06)
== END 2024-07-01 18:15 | disposition home or self-care (01) ==
LOC: EMS 11:36
DX: R33.9 Retention of urine, unspecified (principal); F03.90 Unspecified dementia, unspecified severity, without behavioral disturbance, psychotic disturbance, mood disturbance, and anxiety; I10 Essential (primary) hypertension; Z90.49 Acquired absence of other specified parts of digestive tract; Z86.19 Personal history of other infectious and parasitic diseases; Z79.899 Other long term (current) drug therapy; Z98.890 Other specified postprocedural states
CPT/HCPCS: 51701; 80048; 81003; 85025; 99284

== ENCOUNTER 2024-11-11 06:05 | Inpatient (IN) | payer MEDICAID, MEDICARE, OTHER ==
[~2024-11-11] VITALS: Ht 182.9 cm; Wt 92.2 kg
[2024-11-11] VITALS (7 sets, daily range): BP systolic 55–119; BP diastolic 26–58; PULSE 66–110; RESP 26–36; TEMP 91.4; O2SAT 0–100
[~2024-11-11 06:05] MED LIST changes: -BISA10SU11 PR; +CIPR-279 PO; -CYAN-53 PO; +DULO20CA19 PO; -DULO20CA71 PO; -FLUT16H NASAL; -FOLI-130 PO; -LACT10SO10 PO; -LEVO-72 PO; -LORA-1370 PO; -RIFAX550 PO; -THIA100T80 PO; -TRAM50TA5 PO; -ZOLP-162 PO; -[UNRECOGNIZED DRUG - CODE] IV
[2024-11-11] MEDS: SODIUM CHLORIDE 0.9% 1,000 ML IV ONE ×4 (06:14→16:06)
[2024-11-11] MEDS: ACETAMINOPHEN 1000 MG/ISO-OSM 100 ML IV ONE (06:24)
[2024-11-11] MEDS: ONDANSETRON HCL 4 MG/2 ML VIAL IVP ONE (07:04)
[2024-11-11 07:14] LABS: BASOPHILS % (AUTO) 0.4 % (0.0-2.0); EOSINOPHILS % (AUTO) 0.1 % (1.0-6.0); HEMATOCRIT 36.4 % (41-53); HEMOGLOBIN 11.5 g/dL (13.5-17.5); LYMPHOCYTES # (AUTO) 1.4 K/uL (1.0-4.8); LYMPHOCYTES % (AUTO) 7.5 % (22.0-44.0); MEAN CORPUSCULAR HEMOGLOBIN 28.2 pg (26.0-34.0); MEAN CORPUSCULAR HGB CONC 31.5 G/dL (31.0-37.0); MEAN CORPUSCULAR VOLUME 90 fL (80-100); MONOCYTES # (AUTO) 1.5 K/uL (0.1-1.0); NEUTROPHILS # (AUTO) 16.2 K/uL (1.8-7.7); PLATELET COUNT (AUTO) 208 K/uL (150-450); RED BLOOD CELL COUNT(AUTO) 4.07 MIL/uL (4.50-5.90); RED CELL DISTRIBUTION WIDTH 16.9 % (11.5-14.5); WHITE BLOOD COUNT (AUTO) 19.3 K/uL (4.5-11.0)
[2024-11-11 07:16] LABS: ANION GAP 24 mmol/L (8-16); CALCIUM, TOTAL 9.1 mg/dL (8.8-10.5); CARBON DIOXIDE 11 mmol/L (22-29); CHLORIDE 107 mmol/L (98-107); CREATININE 2.67 mg/dL (0.60-1.30); GLOMERULAR FILTR. RATE CALC 24 mL/min (>60); GLUCOSE,RANDOM 92 mg/dL (70-110); POTASSIUM 5.5 mmol/L (3.5-5.1); SODIUM SERUM 142 mmol/L (136-145); UREA NITROGEN, BLOOD 49 mg/dL (7-18)
[2024-11-11 07:23] LABS: ALANINE AMINOTRANSFERASE 90 U/L (12-78); ALBUMIN 3.2 g/dL (3.4-5.0); ALKALINE PHOSPHATASE 96 U/L (46-116); ASPARTATE AMINOTRANSFERASE 149 U/L (15-37); BILIRUBIN,TOTAL 1.3 mg/dL (0.1-1.0); CREATINE KINASE, TOTAL ONLY 194 U/L (39-308); TOTAL PROTEIN, SERUM 6.7 g/dL (6.4-8.2)
[2024-11-11 07:23] LABS: COVID AG,FIA SOURCE NASAL SWAB
[2024-11-11] MEDS: PANTOPRAZOLE SODIUM 40 MG/VIAL IVP ONE (07:23)
[2024-11-11 07:27] LABS: TROPONIN I-HIGH SENSITIVITY 72 ng/L (<76)
[2024-11-11 07:32] LABS: LACTIC ACID 11.6 mmol/L (0.4-2.0)
[2024-11-11 07:43] LABS: ALCOHOL, BLOOD (SERUM) < 3 mg/dL (0-10)
[2024-11-11] MEDS: PIPERACILLIN/TAZO 3.375 GM/D5W 50 ML IV ONE (07:51)
[2024-11-11 07:55] LABS: B-TYPE NATRIURETIC PEPTIDE 21 pg/mL (0-100)
[2024-11-11 07:55] LABS: APPEARANCE,URINE CLEAR (CLEAR); BILIRUBIN,URINE NEGATIVE (NEGATIVE); COLOR,URINE YELLOW (YELLOW); GLUCOSE, URINE (UA) NEGATIVE (NEGATIVE); KETONES,URINE NEGATIVE (NEGATIVE); LEUKOCYTE ESTERASE ,URINE NEGATIVE (NEGATIVE); NITRATE,URINE NEGATIVE (NEGATIVE); OCCULT BLOOD,URINE TRACE (NEGATIVE); PROTEIN,URINE TRACE mg/dL (NEGATIVE); SPECIFIC GRAVITIY, URINE 1.027 (1.003-1.030)
[2024-11-11 08:01] LABS: ALCOHOL, URINE DRUG SCREEN NEGATIVE (NEGATIVE); AMPHET/METH SCREEN,URINE NEGATIVE (NEGATIVE); BARBITURATE SCREEN, URINE NEGATIVE (NEGATIVE); BENZODIAZEPINES SCREEN,URINE NEGATIVE (NEGATIVE); CANNABINOID SCREEN,URINE NEGATIVE (NEGATIVE); COCAINE SCREEN,URINE NEGATIVE (NEGATIVE); METHADONE SCREEN, URINE NEGATIVE (NEGATIVE); OPIATE SCREEN,URINE NEGATIVE (NEGATIVE); PHENCYCLIDINE SCREEN,URINE NEGATIVE (NEGATIVE)
[2024-11-11] MEDS: PANTOPRAZOLE SODIUM 80 MG in SODIUM CHLORIDE 0.9% 100 ML IV SCH ×2 (08:06→16:19)
[2024-11-11 08:07] LABS: BACTERIA,URINE Few /HPF (None Seen)
[2024-11-11 08:13] LABS: SARS-COV2 (COVID) ANTIGEN,FIA Negative (Negative)
[2024-11-11 08:14] LABS: INFLUENZA TYPE A NEGATIVE FOR TYPE A (NEGATIVE); INFLUENZA TYPE B NEGATIVE FOR TYPE B (NEGATIVE)
[2024-11-11] MEDS ORDERED: ONDANSETRON HCL 4 MG/2 ML VIAL IVP PRN (08:30)
[2024-11-11] MEDS ORDERED: BISACODYL 10 MG RECTAL RECTAL SUPPOSITORY PR PRN (08:30)
[2024-11-11] MEDS ORDERED: ACETAMINOPHEN 325 MG TABLET PO PRN (08:30)
[2024-11-11 08:33] LABS: ABG BASE EXCESS -18.8 mmol/L (-2.0-3.0); ABG CARBOXYHEMOGLOBIN 2.7 % (0.5-1.5); ABG HCO3 11.4 mmol/L (21.0-28.0); ABG METHEMOGLOBIN 0.3 % (0.0-1.5); ABG OXYGEN CONTENT 14.4 mL/dL (15.0-23.0); ABG OXYGEN SATURATION 99.7 % (94.0-98.0); ABG OXYHEMOGLOBIN 96.7 % (94.0-98.0); ABG PCO2 24 mmHg (32.0-48.0); ABG TOTAL HEMOGLOBIN 10.2 G/dL (13.5-17.5); PO2, ARTERIAL BG 211.2 mmHg (83.0-108.0); SOURCE, BLOOD GAS ARTERIAL
[2024-11-11 08:34] LABS: ABG PH 7.205 (7.350-7.450); ALLEN TEST, BLOOD GAS Positive; SITE, BLOOD GAS RT RADIAL
[2024-11-11 08:35] LABS: ABG A-A DIFF O2 478.8 mmHg (10-20.0)
[2024-11-11] MEDS ORDERED: ETOMIDATE 2 MG/ML 10 ML VIAL ONE (13:49)
[2024-11-11] MEDS ORDERED: ROCURONIUM BROMIDE 10 MG/ML 5 ML VIAL ONE (13:50)
[2024-11-11] MEDS ORDERED: PHENYLEPHRINE HCL IN 0.9% NACL 400 MCG/10 ML SYRINGE IVP ONE ×2 (13:51→18:16)
[2024-11-11] MEDS ORDERED: SODIUM BICARBONATE [ADULT] 8.4% 50 MEQ/50 ML SYRINGE IVP ONE ×2 (13:51→15:51)
[2024-11-11] MEDS: NOREPINEPHRINE 8 MG/0.9 % NACL 250 ML IV PRN (14:13)
[2024-11-11] MEDS: PIPERACILLIN/TAZO 3.375 GM/D5W 50 ML IV SCH (14:32)
[2024-11-11] MEDS: EPINEPHrine 5 MG in DEXTROSE 5%-WATER 245 ML IV PRN (14:52)
[2024-11-11] MEDS ORDERED: SODIUM CHLORIDE 0.9% 500 ML IV ONE ×2 (15:15→15:23)
[2024-11-11] MEDS: VANCOMYCIN 1.25 GM/WATER(PEG) 250 ML IV ONE (15:40)
[2024-11-11 15:47] LABS: ABG BASE EXCESS -30.9 mmol/L (-2.0-3.0); ABG CARBOXYHEMOGLOBIN 3.5 % (0.5-1.5); ABG HCO3 3.7 mmol/L (21.0-28.0); ABG METHEMOGLOBIN 0.3 % (0.0-1.5); ABG OXYGEN CONTENT 15.3 mL/dL (15.0-23.0); ABG OXYGEN SATURATION 99.9 % (94.0-98.0); ABG OXYHEMOGLOBIN 96.1 % (94.0-98.0); ABG PCO2 46 mmHg (32.0-48.0); ABG TOTAL HEMOGLOBIN 10.3 G/dL (13.5-17.5); SOURCE, BLOOD GAS ARTERIAL; TEMPERATURE, FAHRENHEIT, BG 96.3 FAHREN (96.0-98.6)
[2024-11-11 15:48] LABS: ABG A-A DIFF O2 190.8 mmHg (10-20.0); O2 DEVICE,BLOOD GAS VENTILATOR (ROOM AIR); PO2, ARTERIAL BG 479.4 mmHg (83.0-108.0); SITE, BLOOD GAS ARTERIAL LINE
[2024-11-11 15:49] LABS: PEEP,BG 5 cm H2O; SPONTANEOUS VT, BG 477 ml; VT, ABG 450 ml
[2024-11-11] MEDS: SODIUM BICARBONATE [ADULT] 8.4% 50 MEQ/50 ML SYRINGE IVP ONE ×3 (16:06→23:27)
[2024-11-11 16:16] LABS: CALCIUM, TOTAL 7.7 mg/dL (8.8-10.5); CREATININE 3.05 mg/dL (0.60-1.30)
[2024-11-11 16:19] LABS: POTASSIUM 7.5 mmol/L (3.5-5.1)
[2024-11-11 16:22] LABS: ALBUMIN 2.3 g/dL (3.4-5.0); BILIRUBIN,TOTAL 1.2 mg/dL (0.1-1.0)
[2024-11-11] MEDS: PROPOFOL 1000 MG/ISO-OSM 100 ML IV PRN (16:26)
[2024-11-11] MEDS: SODIUM BICARBONATE 150 MEQ in DEXTROSE 5%-WATER 1,000 ML IV SCH (16:26)
[2024-11-11] MEDS: CALCIUM GLUCONATE 100 MG/ML 10 ML IVP ONE (16:36)
[2024-11-11 16:39] LABS: ABG BASE EXCESS -25.9 mmol/L (-2.0-3.0); ABG CARBOXYHEMOGLOBIN 4.9 % (0.5-1.5); ABG HCO3 6.3 mmol/L (21.0-28.0); ABG METHEMOGLOBIN 0.3 % (0.0-1.5); ABG OXYGEN CONTENT 11.8 mL/dL (15.0-23.0); ABG OXYHEMOGLOBIN 94.8 % (94.0-98.0); ABG PCO2 46 mmHg (32.0-48.0); ABG PH 6.851 (7.350-7.450); ABG TOTAL HEMOGLOBIN 7.9 G/dL (13.5-17.5); SITE, BLOOD GAS ARTERIAL LINE; SOURCE, BLOOD GAS ARTERIAL; TEMPERATURE, FAHRENHEIT, BG 95.6 FAHREN (96.0-98.6)
[2024-11-11 16:40] LABS: O2 DEVICE,BLOOD GAS VENTILATOR (ROOM AIR); PEEP,BG 5 cm H2O; VT, ABG 450 ml
[2024-11-11] MEDS: DEXTROSE 50%-WATER 25 GM/50 ML SYRINGE IVP ONE ×3 (16:42→23:25)
[2024-11-11] MEDS: INSULIN REGULAR, HUMAN 100 UNITS/ML IVP ONE ×2 (16:44→23:26)
[2024-11-11 17:03] LABS: CALCIUM, TOTAL 8.3 mg/dL (8.8-10.5); CREATININE 3.13 mg/dL (0.60-1.30)
[2024-11-11 17:06] LABS: POTASSIUM 7.9 mmol/L (3.5-5.1)
[2024-11-11] MEDS ORDERED: HEPARIN SODIUM,PORCINE 5,000 UNITS/ML VIAL ONE (17:25)
[2024-11-11] MEDS: CALCIUM CHLORIDE 100 MG/ML 10 ML SYRINGE IVP ONE (17:30)
[2024-11-11] MEDS: HEPARIN SODIUM PORCINE IVP ONE (17:31)
[2024-11-11] MEDS: HEPARIN SODIUM,PORCINE 5,000 UNITS/ML VIAL IVP ONE (17:37)
[2024-11-11] MEDS ORDERED: VANCOMYCIN HCL 1 GM/D5% WATER 200 ML IV PRN (17:45)
[2024-11-11 18:05] LABS: ABG A-A DIFF O2 148.2 mmHg (10-20.0); ABG CARBOXYHEMOGLOBIN 5.9 % (0.5-1.5); ABG HCO3 6.3 mmol/L (21.0-28.0); ABG METHEMOGLOBIN 0.2 % (0.0-1.5); ABG OXYGEN CONTENT 11.1 mL/dL (15.0-23.0); ABG OXYHEMOGLOBIN 90.1 % (94.0-98.0); ABG PCO2 39 mmHg (32.0-48.0); ABG TOTAL HEMOGLOBIN 8.6 G/dL (13.5-17.5); O2 DEVICE,BLOOD GAS VENTILATOR (ROOM AIR); PO2, ARTERIAL BG 95.8 mmHg (83.0-108.0); SITE, BLOOD GAS ARTERIAL LINE; SOURCE, BLOOD GAS ARTERIAL; TEMPERATURE, FAHRENHEIT, BG 92.8 FAHREN (96.0-98.6); VT, ABG 450 ml
[2024-11-11 18:06] LABS: PEEP,BG 5 cm H2O; SPONTANEOUS VT, BG 455 ml
[2024-11-11] MEDS: DOPamine 400MG/D5W[STANDARD] 250 ML IV PRN (18:11)
[2024-11-11] MEDS: PHENYLEPHRINE HCL 400 MG in DEXTROSE 5%-WATER 210 ML IV PRN (18:33)
[2024-11-11] MEDS: VASOPRESSIN 40 UNITS in DEXTROSE 5%-WATER 98 ML IV PRN (18:46)
[2024-11-11] MEDS: ALBUMIN HUMAN 25%-12.5GM/50ML 50 ML IV ONE (18:54)
[2024-11-11 20:34] LABS: ABG BASE EXCESS -21.3 mmol/L (-2.0-3.0); ABG CARBOXYHEMOGLOBIN 6.1 % (0.5-1.5); ABG HCO3 9.1 mmol/L (21.0-28.0); ABG METHEMOGLOBIN 0.1 % (0.0-1.5); ABG OXYGEN CONTENT 10.7 mL/dL (15.0-23.0); ABG OXYGEN SATURATION 96.6 % (94.0-98.0); ABG OXYHEMOGLOBIN 90.6 % (94.0-98.0); ABG PCO2 40 mmHg (32.0-48.0); ABG TOTAL HEMOGLOBIN 8.2 G/dL (13.5-17.5); SOURCE, BLOOD GAS ARTERIAL; TEMPERATURE, FAHRENHEIT, BG 92.1 FAHREN (96.0-98.6)
[2024-11-11 20:37] LABS: ABG A-A DIFF O2 152.7 mmHg (10-20.0); ABG PH 7.011 (7.350-7.450); O2 DEVICE,BLOOD GAS VENT (ROOM AIR); SITE, BLOOD GAS ALINE
[2024-11-11 20:38] LABS: PEEP,BG 5 cm H2O; VT, ABG 450 ml
[2024-11-11] MEDS: CHLORHEXIDINE GLUCONATE 2% TOWELETTE [2'S/6'S] TP SCH (21:52)
[2024-11-11] MEDS: ETHYL ALCOHOL 62% ANTISEPTIC NASAL SANITIZER 0.6 ML AMPUL NASAL SCH (21:52)
[2024-11-11 22:21] LABS: CALCIUM, TOTAL 6.8 mg/dL (8.8-10.5); CREATININE 2.9 mg/dL (0.60-1.30)
[2024-11-11 22:24] LABS: POTASSIUM 7.4 mmol/L (3.5-5.1)
[2024-11-11 22:41] LABS: MAGNESIUM 3.3 mg/dL (1.80-2.40); PHOSPHORUS 14.3 mg/dL (2.5-4.9)
[2024-11-11] MEDS ORDERED: POTASSIUM CHLORIDE 10 MEQ in NXSTAGE RFP-402 K0/CA3 5,000 ML IRRIG PRN (22:45)
[2024-11-11] MEDS: PIPERACILLIN SODIUM/TAZOBACTAM 2.25 GM in DEXTROSE 5%-WATER 50 ML IV SCH (22:57)
[2024-11-11] MEDS ORDERED: SODIUM CHLORIDE 0.9% 250 ML IV ONE (23:13)
[2024-11-11] MEDS: CALCIUM GLUCONATE 1,000 MG in DEXTROSE 5%-WATER 50 ML IV ONE (23:27)
[2024-11-12] VITALS (14 sets, daily range): BP systolic 74–127; BP diastolic 48–64; PULSE 48–73; RESP 30–35; TEMP 86.3–90; O2SAT 0–98
[2024-11-12] MEDS ORDERED: HEPARIN SODIUM,PORCINE 1,000 UNITS/ML VIAL IVCATH PRN (02:45)
[2024-11-12] MEDS: NOREPINEPHRINE BITARTRATE 16 MG in SODIUM CHLORIDE 0.9% 234 ML IV PRN (04:44)
[2024-11-12 06:43] LABS: BASOPHILS % (AUTO) 0.3 % (0.0-2.0); EOSINOPHILS % (AUTO) 0.3 % (1.0-6.0); LYMPHOCYTES # (AUTO) 1.3 K/uL (1.0-4.8); LYMPHOCYTES % (AUTO) 13.2 % (22.0-44.0); MEAN CORPUSCULAR HEMOGLOBIN 29.4 pg (26.0-34.0); MEAN CORPUSCULAR HGB CONC 29.9 G/dL (31.0-37.0); MEAN CORPUSCULAR VOLUME 98 fL (80-100); MONOCYTES # (AUTO) 0.4 K/uL (0.1-1.0); MONOCYTES % (AUTO) 4.4 % (2.0-9.0); NEUTROPHILS # (AUTO) 8.2 K/uL (1.8-7.7); NEUTROPHILS % (AUTO) 81.8 % (40.0-70.0); PLATELET COUNT (AUTO) 106 K/uL (150-450); RED BLOOD CELL COUNT(AUTO) 2.03 MIL/uL (4.50-5.90); RED CELL DISTRIBUTION WIDTH 18.1 % (11.5-14.5); WHITE BLOOD COUNT (AUTO) 10.1 K/uL (4.5-11.0)
[2024-11-12 06:57] LABS: CALCIUM, TOTAL 6.4 mg/dL (8.8-10.5); CREATININE 2.83 mg/dL (0.60-1.30)
[2024-11-12 07:03] LABS: HEMATOCRIT 19.9 % (41-53)
[2024-11-12 07:21] LABS: MAGNESIUM 2.7 mg/dL (1.80-2.40)
[2024-11-12 07:24] LABS: PHOSPHORUS 11.5 mg/dL (2.5-4.9)
[2024-11-12 07:26] LABS: POTASSIUM 7.4 mmol/L (3.5-5.1)
[2024-11-12 07:32] LABS: RBC MORPHOLOGY COMMENT ABNORMAL RBC MORPH
[2024-11-12] MEDS ORDERED: SODIUM BICARBONATE [ADULT] 8.4% 50 MEQ/50 ML SYRINGE IVP ONE (08:00)
[2024-11-12] MEDS ORDERED: 0.9% SODIUM CHLORIDE 1,000 ML BAG ONE (08:00)
[2024-11-12] MEDS ORDERED: EPINEPHrine 1:10,000 [1 MG/10 ML] SYRINGE ONE ×2 (08:00→14:24)
[2024-11-12] MEDS ORDERED: CALCIUM CHLORIDE 100 MG/ML 10 ML SYRINGE IVP ONE (08:00)
[2024-11-12] MEDS ORDERED: ATROPINE SULFATE 0.1 MG/ML 10 ML SYRINGE IVP ONE (08:00)
[2024-11-12] MEDS ORDERED: VANCOMYCIN 750 MG/WATER(PEG) 150 ML IV SCH (08:00)
[2024-11-12] MEDS: CALCIUM GLUCONATE 100 MG/ML 10 ML IVP ONE (08:42)
[2024-11-12] MEDS: INSULIN REGULAR, HUMAN 100 UNITS/ML IVP ONE (08:42)
[2024-11-12] MEDS: SODIUM BICARBONATE [ADULT] 8.4% 50 MEQ/50 ML SYRINGE IVP ONE (08:42)
[2024-11-12] MEDS: NXSTAGE RFP K0 IRRIG PRN (09:00)
[2024-11-12] MEDS: [UNRECOGNIZED DRUG - OTHER] IRRIG PRN (09:00)
[2024-11-12] MEDS: POTASSIUM CHLORIDE IRRIG PRN (09:00)
[2024-11-12] MEDS ORDERED: DEXTROSE 50%-WATER 25 GM/50 ML SYRINGE IVP PRN (09:30)
[2024-11-12] MEDS: EPINEPHrine 10 MG in DEXTROSE 5%-WATER 240 ML IV PRN (09:54)
[2024-11-12] MEDS: SODIUM BICARBONATE 150 MEQ in DEXTROSE 5%-WATER 1,000 ML IV SCH (10:17)
[2024-11-12] MEDS: INSULIN GLARGINE,HUM.REC.ANLOG 100 UNITS/ML SQ SCH (10:23)
[2024-11-12 10:58] LABS: ABG BASE EXCESS -20.1 mmol/L (-2.0-3.0); ABG CARBOXYHEMOGLOBIN 0.3 % (0.5-1.5); ABG HCO3 9.9 mmol/L (21.0-28.0); ABG METHEMOGLOBIN 3.4 % (0.0-1.5); ABG OXYGEN CONTENT 7.6 mL/dL (15.0-23.0); ABG OXYGEN SATURATION 97.8 % (94.0-98.0); ABG OXYHEMOGLOBIN 94.2 % (94.0-98.0); ABG PCO2 28 mmHg (32.0-48.0); PO2, ARTERIAL BG 93.7 mmHg (83.0-108.0); SOURCE, BLOOD GAS ARTERIAL; TEMPERATURE, FAHRENHEIT, BG 86.9 FAHREN (96.0-98.6)
[2024-11-12 10:59] LABS: ABG TOTAL HEMOGLOBIN 5.5 G/dL (13.5-17.5); O2 DEVICE,BLOOD GAS VENTILATOR (ROOM AIR); PEEP,BG 5 cm H2O; SITE, BLOOD GAS ARTERIAL LINE; SPONTANEOUS VT, BG 436 ml; VT, ABG 450 ml
[2024-11-12] MEDS: VASOPRESSIN 40 UNITS in DEXTROSE 5%-WATER 98 ML IV PRN (11:10)
[2024-11-12] MEDS ORDERED: SODIUM CHLORIDE 0.9% 250 ML IV ONE (12:39)
[2024-11-12] MEDS: PHENYLEPHRINE HCL 400 MG in DEXTROSE 5%-WATER 210 ML IV PRN (13:18)
[2024-11-12] MEDS: HEPARIN SODIUM,PORCINE 1,000 UNITS/ML VIAL IV PRN (14:00)
[2024-11-12] MEDS ORDERED: ALBUMIN HUMAN 25%-12.5GM/50ML IV BOTTLE ONE (17:00)
== END 2024-11-12 14:28 | DRG 871 ==
LOC: EMS 06:06 → EDH 08:29 → ICU 21:00
PROVIDERS: ADMIT Internal Medicine; ATTEND Internal Medicine
PROC: 0BH17EZ Insertion of Endotracheal Airway into Trachea, Via Natural or Artificial Opening (ICD-10-PCS; principal; 2024-11-11)
PROC: 5A1935Z Respiratory Ventilation, Less than 24 Consecutive Hours (ICD-10-PCS; 2024-11-11)
PROC: 04HY32Z Insertion of Monitoring Device into Lower Artery, Percutaneous Approach (ICD-10-PCS; 2024-11-11)
PROC: 5A1D70Z Performance of Urinary Filtration, Intermittent, Less than 6 Hours Per Day (ICD-10-PCS; 2024-11-11)
PROC: 5A12012 Performance of Cardiac Output, Single, Manual (ICD-10-PCS; 2024-11-12)
PROC: 30233N1 Transfusion of Nonautologous Red Blood Cells into Peripheral Vein, Percutaneous Approach (ICD-10-PCS; 2024-11-12)
PROC: 5A1D90Z Performance of Urinary Filtration, Continuous, Greater than 18 hours Per Day (ICD-10-PCS; 2024-11-12)
DX: A41.9 Sepsis, unspecified organism (principal); G92.8 Other toxic encephalopathy; J69.0 Pneumonitis due to inhalation of food and vomit; J96.00 Acute respiratory failure, unspecified whether with hypoxia or hypercapnia; R65.21 Severe sepsis with septic shock; N17.0 Acute kidney failure with tubular necrosis; M48.56XA Collapsed vertebra, not elsewhere classified, lumbar region, initial encounter for fracture; K92.2 Gastrointestinal hemorrhage, unspecified; C22.0 Liver cell carcinoma; E87.20 Acidosis, unspecified; Z20.822 Contact with and (suspected) exposure to COVID-19; I10 Essential (primary) hypertension; N20.0 Calculus of kidney; R16.0 Hepatomegaly, not elsewhere classified; E87.5 Hyperkalemia; F03.90 Unspecified dementia, unspecified severity, without behavioral disturbance, psychotic disturbance, mood disturbance, and anxiety; K74.60 Unspecified cirrhosis of liver; I46.9 Cardiac arrest, cause unspecified; D64.9 Anemia, unspecified; Z79.899 Other long term (current) drug therapy
CPT/HCPCS: 31500; 70450; 71045; 72125; 72170; 74176; 80048; 80053; 80076; 80307; 81001; 82105; 82140; 82271; 82550; 82805; 83036; 83605; 83735; 83880; 84100; 84484; 85025; 85610; 85730; 86850; 86900; 86901; 86923; 87040; 87081; 87804; 90935; 90947; 92950; 93005; 94003; 99291; G0480; J0131; J0171; J0461; J0610; J1265; J1642; J1644; J1815; J2370; J2405; J2470; J2543; J2704; J3480; J3490; J7030; J7040; J7050; J7060; P9016; P9047; 36415-L1; 36415-TC